=== PATIENT | male | born 1950 | race African-American/Black ===

== ENCOUNTER 2023-08-14 14:42 | Outpatient (CLI) | payer MEDICARE, SELFPAY ==
[2023-08-14 15:29] LABS: Basophils Absolute Auto 0.1 K/mm3 (0.0-0.1); Basophils Percent Auto 0.9 % (0.2-1.2); Eosinophils Percent Auto 0.7 % (0-4.4); Hematocrit 36.5 % (42.0-52.0); Hemoglobin 11.7 g/dL (14.0-18.0); Immature Granulocyte Absolute 0.02 K/mm3 (0.00-0.031); Immature Granulocyte Percent A 0.3 % (0-0.5); Lymphocytes Absolute Auto 1.69 K/mm3 (0.9-3.2); Lymphocytes Percent Auto 28.8 % (18.3-44.2); Mean Corpuscular HGB Conc 32.1 g/dl (32-36); Mean Corpuscular Hemoglobin 30.1 pg (26-34); Mean Corpuscular Volume 93.8 fl (80-100); Mean Platelet Volume 10.3 fl (7.4-10.4); Monocytes Absolute Auto 0.5 K/mm3 (0.1-0.6); Neutrophils Absolute Auto 3.5 K/mm3 (1.3-6.7); Neutrophils Percent Auto 60.3 % (45.5-73.1); Platelet Count Result 124 k/mm3 (150-375); Red Blood Count 3.89 M/mm3 (4.6-6.20); Red Cell Distribution Width 13.5 % (11.5-14.5); White Blood Count 5.9 K/mm3 (4.5-10.0)
[2023-08-15 02:58] LABS: Alanine Aminotransferase 13 U/L (6-50); Albumin Level 4.2 g/dL (3.5-5.1); Alkaline Phosphatase 471 U/L (38-126); Anion Gap 6 mmol/L (8-16); Aspartate Amino Transferase 25 U/L (17-59); Bilirubin,Total 0.5 mg/dL (0.2-1.3); Blood Urea Nitrogen 18 mg/dL (9-20); Calcium 9.7 mg/dL (8.4-10.2); Carbon Dioxide 30 mmol/L (22-30); Chloride 105 mmol/L (98-107); Estimated Glomerular Filt Rate > 60; Glucose 102 mg/dL (65-110); Potassium 4.7 mmol/L (3.4-5.0); Prostate Specific Antigen 11.6 ng/mL (< OR = 4.0); Sodium 141 mmol/L (137-145)
[2023-08-15 03:10] LABS: Carcinoembryonic Antigen 3.1 ng/mL (0.0-3.0)
== END 2023-08-14 14:43 | disposition home or self-care (01) ==
LOC: ANHLAB 14:50
PROVIDERS: Visit Provider Internal Medicine Hematology & Oncology
DX: D64.9 Anemia, unspecified (principal); C18.9 Malignant neoplasm of colon, unspecified; Z12.5 Encounter for screening for malignant neoplasm of prostate
CPT/HCPCS: 36415; 80053; 82378; 84153; 84443; 85025; G0103

== ENCOUNTER 2023-08-20 12:25 | Outpatient (CLI) | payer MEDICARE, SELFPAY ==
--- NOTE | ~2023-08-20 | CT_ITS ---
EXAMINATION: CT chest abdomen pelvis w con DATE: 08/20/2023 13:14 INDICATION: Malignant neoplasm of colon. TECHNIQUE: Computed tomography (CT) of the chest, abdomen, and pelvis was performed with 100 mL Omnip aque 350 intravenous contrast. Automated exposure control and iterative reconstruction technique were employed. The dose-length product was 273.15 mGy-cm. COMPARISON: None FINDINGS: CHEST CT: There is mild scarring at the lung apices. There is a pneumatocele in right lower lobe. There is mild atelectasis in right middle lobe. No pleural effusion. There is a 12 mm nodule in left thyroid lobe, likely not clinically significant. The heart size is normal. No pericardial effusion. There is enlar gement and trabecular and cortical thickening involving many of the vertebra. ABDOMEN/PELVIS CT: There is a 1.7 cm cyst in the liver. The gallbladder, spleen, pancreas, adrenal glands are normal. Th ere are cysts in the kidneys measuring up to 3.5 cm on the right. Aortic atherosclerosis is noted. Th e prostate is mildly enlarged. There is diverticulosis of the colon without evidence of diverticuliti s. The appendix is not visualized. There is trace pelvic ascites. There are no pathologically enlarge d lymph nodes. 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 There is enlargement and trabecular and c ortical thickening involving the pelvic bones and many of the vertebra. IMPRESSION: 1. No evidence of metastatic disease. 2. 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 Reviewed, dictated and finalized at location A.
== END 2023-08-20 12:26 | disposition home or self-care (01) ==
PROVIDERS: Visit Provider Internal Medicine Hematology & Oncology
DX: C18.9 Malignant neoplasm of colon, unspecified (principal); M89.9 Disorder of bone, unspecified
CPT/HCPCS: 71260; 74177; Q9967

== ENCOUNTER 2023-09-04 07:44 | Outpatient (CLI) | payer MEDICARE, SELFPAY ==
--- NOTE | ~2023-09-04 | NM_ITS ---
EXAMINATION: NM bone scan whole body DATE: 09/04/2023 11:52 INDICATION: Paget's disease of bone TECHNIQUE: A 6.2 mCi Tc-99m HDP was administered intravenously. Delayed whole-body scintigrams were obtained. COMPARISON: CT chest, abdomen and pelvis dated 08/20/2023 FINDINGS: There is diffuse abnormal bone uptake involving multiple vertebral bodies from the cervical through t he lumbosacral spine, the pelvis and both the left and right and extending along a few bilateral post erior ribs. The bones with increased uptake corresponding to the bowels with abnormal appearance as d escribed on the prior CT which demonstrated thickened cortices, thickened internal trabecula and expa nsion typical of Paget's disease. Photopenic defect at the right knee consistent with a total knee ar throplasty. Small focus of extravasation at the right antecubital fossa likely at the site of injecti on. IMPRESSION: 1. Extensive nonspecific increased bone uptake throughout the spine, pelvis and involving several chidi ateral ribs. The appearance of the affected bones on prior CT characterized by bone expansion with th ickened cortices and trabecular would be most consistent with Paget's disease. Reviewed, dictated and finalized at location B. IMPRESSION: 1. Extensive nonspecific increased bone uptake throughout the spine, pelvis and involving several bilateral ribs. The appearance of the affected bones on prio r CT characterized by bone expansion with thickened cortices and trabecular wou ld be most consistent with Paget's disease.
== END 2023-09-04 07:45 | disposition home or self-care (01) ==
PROVIDERS: PCP Internal Medicine; Visit Provider Internal Medicine Hematology & Oncology
DX: M88.9 Osteitis deformans of unspecified bone (principal)
CPT/HCPCS: 78306; A9503